=== PATIENT | male | born 1955 | race Two or more races ===

== ENCOUNTER → 2017-10-25 14:36 | Outpatient (CLI) | payer OTHER ==
[~2017-10-25 14:36] MED LIST: AVANDIA4 MG PO; GLIPIZIDE5 MG PO; METFORMIN HYDRO25 GM MC
== END | disposition home or self-care (01) ==
LOC: LAB 14:36 → RAD 14:36
DX: R94.4 Abnormal results of kidney function studies (principal); Z51.81 Encounter for therapeutic drug level monitoring

== ENCOUNTER → 2017-11-02 | Outpatient (CLI) | payer OTHER | END | disposition home or self-care (01) | LOC: TOM 09:00 | DX: R10.2 Pelvic and perineal pain (principal); K59.00 Constipation, unspecified; R19.2 Visible peristalsis | CPT/HCPCS: 74177; Q9965 ==

== ENCOUNTER → 2017-11-02 | Outpatient (CLI) | payer OTHER | END | disposition home or self-care (01) | LOC: RAD 09:11 | DX: I11.9 Hypertensive heart disease without heart failure (principal); I70.90 Unspecified atherosclerosis ==

== ENCOUNTER 2020-10-11 07:59 | Outpatient (CLI) | payer OTHER | END 2020-10-11 09:48 | disposition home or self-care (01) | LOC: RAD 07:59 | PROVIDERS: ATTEND Ophthalmology | DX: I10 Essential (primary) hypertension (principal); I15.8 Other secondary hypertension ==

== ENCOUNTER 2022-04-09 07:30 | Outpatient (CLI) | payer OTHER | END 2022-04-09 07:31 | disposition home or self-care (01) | LOC: NUCLEAR 07:30 | PROVIDERS: ATTEND Internal Medicine Cardiovascular Disease | DX: I20.1 Angina pectoris with documented spasm (principal) | CPT/HCPCS: 78452; 93017; A9500; J0153 ==

== ENCOUNTER 2023-08-17 11:50 | Inpatient (IN) | payer OTHER ==
[~2023-08-17] VITALS: Ht 33 cm; Wt 63.5 kg
[2023-08-17] MEDS ORDERED: ASA81 MG PO (13:13)
[2023-08-17] MEDS ORDERED: PEPCID20 MG PO (13:13)
[2023-08-17] MEDS ORDERED: ELIQUIS5 MG PO (13:14)
[2023-08-17] MEDS ORDERED: PLAVIX75 MG PO (13:14)
[2023-08-17] MEDS ORDERED: LASIX20 MG PO (13:14)
[2023-08-17] MEDS ORDERED: GRALISE600 MG (13:14)
[2023-08-17] MEDS ORDERED: LANTUS SOL100 UNIT/1 (13:15)
[2023-08-17 15:05] LABS: INR 1.08; PARTIAL THROMBOPLASTIN TIME 36.2 SECONDS (22.0-34.0); PROTHROMBIN TIME 11.3 SECONDS (9.0-11.5)
[2023-08-17 15:06] LABS: CALCIUM 8.3 mg/dL (8.5-10.1); CREATININE SERUM 3.13 mg/dL (0.70-1.30); GFR 19.86; POTASSIUM 5.2 mEq/L (3.5-5.1)
[2023-08-17 15:10] LABS: MEAN CELL VOLUME 87.6 fL (80.0-100.00); PLATELET COUNT 397 K/uL (150-450); RED BLOOD COUNT 2.22 M/uL (4.00-6.00); RED CELL DISTRIBUTION WIDTH 13.6 % (11.5-14.5)
[2023-08-17 15:17] LABS: MEAN CORPUSCULAR HEMOGLOBIN 29.7 pg (27.00-32.0)
[2023-08-17 15:21] LABS: PH,URINE 5.5 (5.0-8.0); URINE APPEARANCE Cloudy; URINE BILIRRUBIN Negative (NEGATIVE); URINE BLOOD Large; URINE COLOR Yellow; URINE GLUCOSE Negative (NEGATIVE); URINE LEUKOCYTE Small; URINE NITRATE Negative; URINE UROBILINOGEN 0.2 E.U./dl
[2023-08-17 15:23] LABS: URINE BACTERIA 511.5 uL (0.0-1933); URINE RBC 193.7 uL (0.0-20.8); URINE WBC 142.3 uL (0.0-23.2)
[2023-08-17 15:23] LABS: HEMATOCRIT 19.5 % (39.0-48.0)
[2023-08-17 15:26] LABS: HEMOGLOBIN 6.6 g/dL (13-16.00)
[2023-08-17 15:43] LABS: URINE PROTEIN 100 (NEGATIVE)
[2023-08-19 10:13] LABS: HEMATOCRIT 33.6 % (39.0-48.0); HEMOGLOBIN 11.2 g/dL (13-16.00); MEAN CELL VOLUME 87.8 fL (80.0-100.00); MEAN CORPUSCULAR HEMOGLOBIN 29.3 pg (27.00-32.0); MEAN CORPUSCULAR HGB CONC 33.3 g/dl (32.0-36.0); PLATELET COUNT 433 K/uL (150-450); RED BLOOD COUNT 3.83 M/uL (4.00-6.00); RED CELL DISTRIBUTION WIDTH 14.3 % (11.5-14.5)
[2023-08-19 10:53] LABS: ALBUMIN 2.4 gm/dL (3.4-5.0); BILIRUBIN TOTAL 0.65 mg/dL (0.3-1.2); CALCIUM 8.6 mg/dL (8.5-10.1); CREATININE SERUM 3.64 mg/dL (0.70-1.30); GFR 16.68; GLOBULINA 4.8 G/DL (2.4-3.5); MAGNESIUM 2.5 mg/dL (1.8-2.4); PHOSPHOROUS 5.8 mg/dL (2.5-4.9); POTASSIUM 5.46 mEq/L (3.5-5.1); TOTAL PROTEIN 7.2 gm/dL (6.4-8.2)
[2023-08-19 10:57] LABS: C-REACTIVE PROTEIN 7.35 MG/DL (0.00-0.29)
[2023-08-21 00:10] LABS: URINE APPEARANCE Turbid; URINE BACTERIA 7159.2 uL (0.0-1933); URINE BILIRRUBIN Moderate (NEGATIVE); URINE BLOOD Large; URINE COLOR Red; URINE EPITHELIAL CELLS 4.6 uL (0.0-38.8); URINE GLUCOSE 250 MG/DL (NEGATIVE); URINE LEUKOCYTE Large; URINE NITRATE Positive; URINE PROTEIN >=1000 (NEGATIVE); URINE RBC > 10558.9 uL (0.0-20.8); URINE UROBILINOGEN 0.2 E.U./dl; URINE WBC 505.1 uL (0.0-23.2)
[2023-08-21 05:31] LABS: MEAN CORPUSCULAR HEMOGLOBIN 29.7 pg (27.00-32.0); MEAN CORPUSCULAR HGB CONC 33.4 g/dl (32.0-36.0); PLATELET COUNT 424 K/uL (150-450); RED BLOOD COUNT 3.71 M/uL (4.00-6.00); RED CELL DISTRIBUTION WIDTH 13.7 % (11.5-14.5)
[2023-08-21 05:55] LABS: ALBUMIN 2.3 gm/dL (3.4-5.0); BILIRUBIN TOTAL 0.33 mg/dL (0.3-1.2); CALCIUM 8.7 mg/dL (8.5-10.1); CREATININE SERUM 1.87 mg/dL (0.70-1.30); GFR 35.98; GLOBULINA 4.8 G/DL (2.4-3.5); POTASSIUM 4.48 mEq/L (3.5-5.1); TOTAL PROTEIN 7.1 gm/dL (6.4-8.2)
[2023-08-21 17:57] LABS: CREATININE SERUM 1.6 mg/dL (0.70-1.30); GFR 43.07; POTASSIUM 4.34 mEq/L (3.5-5.1)
[2023-08-23 06:03] LABS: HEMATOCRIT 32.9 % (39.0-48.0); HEMOGLOBIN 11.2 g/dL (13-16.00); MEAN CELL VOLUME 88.6 fL (80.0-100.00); MEAN CORPUSCULAR HEMOGLOBIN 30.1 pg (27.00-32.0); RED BLOOD COUNT 3.71 M/uL (4.00-6.00); RED CELL DISTRIBUTION WIDTH 13.5 % (11.5-14.5)
[2023-08-23 07:08] LABS: ALBUMIN 2.3 gm/dL (3.4-5.0); BILIRUBIN TOTAL 0.31 mg/dL (0.3-1.2); CALCIUM 8.4 mg/dL (8.5-10.1); CREATININE SERUM 1.06 mg/dL (0.70-1.30); GFR 69.27; POTASSIUM 4.51 mEq/L (3.5-5.1); TOTAL PROTEIN 7.3 gm/dL (6.4-8.2)
[2023-08-23 07:55] LABS: PLATELET COUNT 406 K/uL (150-450)
[2023-08-24 15:17] LABS: PH,URINE 5.5 (5.0-8.0); URINE APPEARANCE Cloudy; URINE BILIRRUBIN Negative (NEGATIVE); URINE BLOOD Large; URINE COLOR Orange; URINE LEUKOCYTE Small; URINE NITRATE Negative; URINE UROBILINOGEN 0.2 E.U./dl
[2023-08-24 15:20] LABS: URINE BACTERIA 463.6 uL (0.0-1933); URINE EPITHELIAL CELLS 43.7 uL (0.0-38.8); URINE RBC 10349.8 uL (0.0-20.8); URINE WBC 248.3 uL (0.0-23.2)
[2023-08-24 15:44] LABS: URINE GLUCOSE 250 MG/DL (NEGATIVE); URINE PROTEIN 300 (NEGATIVE)
[2023-08-25 06:43] LABS: HEMATOCRIT 31.7 % (39.0-48.0); HEMOGLOBIN 10.7 g/dL (13-16.00); MEAN CELL VOLUME 88.9 fL (80.0-100.00); MEAN CORPUSCULAR HEMOGLOBIN 30.1 pg (27.00-32.0); MEAN CORPUSCULAR HGB CONC 33.9 g/dl (32.0-36.0); PLATELET COUNT 338 K/uL (150-450); RED BLOOD COUNT 3.57 M/uL (4.00-6.00); RED CELL DISTRIBUTION WIDTH 13.8 % (11.5-14.5)
[2023-08-25 07:01] LABS: CREATININE SERUM 1.05 mg/dL (0.70-1.30); GFR 70.03; POTASSIUM 4.56 mEq/L (3.5-5.1)
== END 2023-08-26 18:58 | disposition home or self-care (01) | DRG 683 ==
LOC: ER 11:51 → MEDI 22:58
PROVIDERS: General Practice; Internal Medicine; Internal Medicine Infectious Disease; Internal Medicine Nephrology; ADMIT Internal Medicine; ATTEND Internal Medicine
PROC: BW21ZZZ Computerized Tomography (CT Scan) of Abdomen and Pelvis (ICD-10-PCS; 2023-08-17)
PROC: 30233N1 Transfusion of Nonautologous Red Blood Cells into Peripheral Vein, Percutaneous Approach (ICD-10-PCS; 2023-08-18)
PROC: 0T25X0Z Change Drainage Device in Kidney, External Approach (ICD-10-PCS; principal; 2023-08-19)
PROC: BW40ZZZ Ultrasonography of Abdomen (ICD-10-PCS; 2023-08-21)
DX: N17.8 Other acute kidney failure (principal); C68.9 Malignant neoplasm of urinary organ, unspecified; K92.1 Melena; N39.0 Urinary tract infection, site not specified; R31.9 Hematuria, unspecified; D63.0 Anemia in neoplastic disease; R60.0 Localized edema; I10 Essential (primary) hypertension; E11.9 Type 2 diabetes mellitus without complications; Z79.4 Long term (current) use of insulin; E78.49 Other hyperlipidemia; K59.00 Constipation, unspecified; N39.498 Other specified urinary incontinence; N13.39 Other hydronephrosis; N48.1 Balanitis; B96.20 Unspecified Escherichia coli [E. coli] as the cause of diseases classified elsewhere

== ENCOUNTER 2023-09-01 16:06 | Emergency (ER) | payer OTHER ==
[~2023-09-01] VITALS: Ht 154.9 cm; Wt 63.5 kg
[~2023-09-01 16:06] MED LIST changes: +ASA81 MG PO; +ELIQUIS5 MG PO; +GRALISE600 MG; +LANTUS SOL100 UNIT/1; +LASIX20 MG PO; +PEPCID20 MG PO; +PLAVIX75 MG PO
[2023-09-01] MEDS ORDERED: ATORVASTATIN CA40 MG PO (16:40)
[2023-09-01] MEDS ORDERED: CARVEDILOL6.25 M1 PO (16:41)
[2023-09-01 21:33] LABS: URINE APPEARANCE Clear; URINE BILIRRUBIN Negative (NEGATIVE); URINE BLOOD Moderate; URINE COLOR Yellow; URINE GLUCOSE Negative (NEGATIVE); URINE LEUKOCYTE Trace; URINE NITRATE Negative; URINE PROTEIN Negative (NEGATIVE); URINE UROBILINOGEN 0.2 E.U./dl
[2023-09-01 21:34] LABS: HEMATOCRIT 30.6 % (39.0-48.0); HEMOGLOBIN 10.3 g/dL (13-16.00); MEAN CELL VOLUME 87.5 fL (80.0-100.00); MEAN CORPUSCULAR HEMOGLOBIN 29.3 pg (27.00-32.0); MEAN CORPUSCULAR HGB CONC 33.5 g/dl (32.0-36.0); PLATELET COUNT 441 K/uL (150-450); RED CELL DISTRIBUTION WIDTH 13.7 % (11.5-14.5)
[2023-09-01 21:37] LABS: URINE WBC 7.5 uL (0.0-23.2)
[2023-09-01 21:44] LABS: URINE RBC 1.4 uL (0.0-20.8)
[2023-09-01 22:04] LABS: ALBUMIN 2.4 gm/dL (3.4-5.0); BILIRUBIN TOTAL 0.23 mg/dL (0.3-1.2); CALCIUM 8.1 mg/dL (8.5-10.1); CREATININE SERUM 1.62 mg/dL (0.70-1.30); GFR 42.46; GLOBULINA 4.5 G/DL (2.4-3.5); POTASSIUM 4.94 mEq/L (3.5-5.1); TOTAL PROTEIN 6.9 gm/dL (6.4-8.2)
== END 2023-09-01 23:59 | disposition home or self-care (01) ==
LOC: ER 16:07
PROVIDERS: Emergency Medicine
DX: N99.528 Other complication of incontinent external stoma of urinary tract (principal); N19 Unspecified kidney failure; Z85.51 Personal history of malignant neoplasm of bladder; Z87.442 Personal history of urinary calculi; I25.2 Old myocardial infarction

== ENCOUNTER 2023-09-19 06:52 | Emergency (ER) | payer OTHER ==
[~2023-09-19] VITALS: Ht 157.5 cm; Wt 59.0 kg
[~2023-09-19 06:52] MED LIST changes: +ATORVASTATIN CA40 MG PO; +CARVEDILOL6.25 M1 PO
[2023-09-19 07:43] LABS: HEMATOCRIT 26.4 % (39.0-48.0); HEMOGLOBIN 9.1 g/dL (13-16.00); MEAN CELL VOLUME 84.5 fL (80.0-100.00); MEAN CORPUSCULAR HGB CONC 34.3 g/dl (32.0-36.0); PLATELET COUNT 357 K/uL (150-450); RED BLOOD COUNT 3.13 M/uL (4.00-6.00); RED CELL DISTRIBUTION WIDTH 14.2 % (11.5-14.5)
[2023-09-19 07:59] LABS: ALBUMIN 2.1 gm/dL (3.4-5.0); BILIRUBIN TOTAL 0.24 mg/dL (0.3-1.2); CALCIUM 8.6 mg/dL (8.5-10.1); CREATININE SERUM 1.59 mg/dL (0.70-1.30); GFR 43.38; GLOBULINA 4.4 G/DL (2.4-3.5); POTASSIUM 4.02 mEq/L (3.5-5.1); TOTAL PROTEIN 6.5 gm/dL (6.4-8.2)
[2023-09-19 10:01] LABS: URINE APPEARANCE Turbid; URINE BILIRRUBIN Negative (NEGATIVE); URINE BLOOD Large; URINE COLOR Yellow; URINE GLUCOSE Negative (NEGATIVE); URINE LEUKOCYTE Large; URINE NITRATE Positive; URINE PROTEIN 30 (NEGATIVE); URINE UROBILINOGEN 0.2 E.U./dl
[2023-09-19 10:02] LABS: URINE BACTERIA 7307.7 uL (0.0-1933); URINE EPITHELIAL CELLS 9.2 uL (0.0-38.8); URINE RBC 72.8 uL (0.0-20.8); URINE WBC 1089.3 uL (0.0-23.2)
[2023-09-19] MEDS ORDERED: CEFTRIAXONE SODIUM 2,000 MG VIAL IV ONE (10:15)
[2023-09-19] MEDS ORDERED: 0.9 % SODIUM CHLORIDE 1,000 ML IV STA (12:23)
== END 2023-09-19 14:01 | disposition home or self-care (01) ==
LOC: ER 06:52
PROVIDERS: General Practice
DX: N39.0 Urinary tract infection, site not specified (principal); E11.649 Type 2 diabetes mellitus with hypoglycemia without coma; Z79.4 Long term (current) use of insulin; I10 Essential (primary) hypertension; K80.20 Calculus of gallbladder without cholecystitis without obstruction; J90 Pleural effusion, not elsewhere classified; R60.1 Generalized edema
CPT/HCPCS: 36415; 74176; 96365; 96366; 99284; J0696

== ENCOUNTER 2023-09-27 11:01 | Inpatient (IN) | payer OTHER ==
[~2023-09-27] VITALS: Ht 167.6 cm; Wt 54.4 kg
[2023-09-27] MEDS ORDERED: 0.9 % SODIUM CHLORIDE 1,000 ML IV SCH (12:00)
[2023-09-27] MEDS ORDERED: CEFTRIAXONE SODIUM 2,000 MG VIAL IV ONE (12:00)
[2023-09-27] MEDS ORDERED: ACETAMINOPHEN 500 MG GEL..CAP PO ONE (12:00)
[2023-09-27 13:03] LABS: HEMOGLOBIN 9.7 g/dL (13-16.00); MEAN CELL VOLUME 85.2 fL (80.0-100.00); MEAN CORPUSCULAR HEMOGLOBIN 28.6 pg (27.00-32.0); MEAN CORPUSCULAR HGB CONC 33.6 g/dl (32.0-36.0); PLATELET COUNT 484 K/uL (150-450); RED CELL DISTRIBUTION WIDTH 14.3 % (11.5-14.5)
[2023-09-27 13:30] LABS: ALBUMIN 1.8 gm/dL (3.4-5.0); BILIRUBIN TOTAL 0.37 mg/dL (0.3-1.2); CALCIUM 8.1 mg/dL (8.5-10.1); CREATININE SERUM 2.03 mg/dL (0.70-1.30); GFR 32.73; GLOBULINA 5.7 G/DL (2.4-3.5); POTASSIUM 5.53 mEq/L (3.5-5.1); TOTAL PROTEIN 7.5 gm/dL (6.4-8.2)
[2023-09-27 13:34] LABS: URINE APPEARANCE Turbid; URINE BILIRRUBIN Small (NEGATIVE); URINE BLOOD Large; URINE COLOR Dark Yellow; URINE GLUCOSE Negative (NEGATIVE); URINE LEUKOCYTE Large; URINE NITRATE Negative
[2023-09-27 13:38] LABS: URINE BACTERIA 6124.8 uL (0.0-1933); URINE EPITHELIAL CELLS 49.6 uL (0.0-38.8); URINE RBC 83.5 uL (0.0-20.8)
[2023-09-27 13:50] LABS: URINE PROTEIN 100 (NEGATIVE); URINE YEAST FEW /hpf
[2023-09-27 13:51] LABS: URINE WBC > 5548.3 uL (0.0-23.2)
[2023-09-27] MEDS ORDERED: ONDANSETRON HCL 4 MG in 0.9 % SODIUM CHLORIDE 50 ML IV PRN (18:45)
[2023-09-27] MEDS ORDERED: ACETAMINOPHEN 500 MG GEL..CAP PO PRN (18:45)
[2023-09-27] MEDS ORDERED: DEXTROSE 50 % IN WATER 0.5 G/ML DISP.SYRIN IV PRN (18:45)
[2023-09-27] MEDS ORDERED: INSULIN LISPRO 1,000 UNIT/10 ML UNITS SUBCUTANEO PRN (18:45)
[2023-09-27 20:32] LABS: INR 1.13; PARTIAL THROMBOPLASTIN TIME 42.1 SECONDS (22.0-34.0); PROTHROMBIN TIME 11.8 SECONDS (9.0-11.5)
[2023-09-27 20:49] LABS: ABG PH 7.483 (7.35-7.45); ABG PO2 82.3 mmHg (80-100); ABG pCO2 33.6 mmHg (35-45)
[2023-09-27 20:50] LABS: BASE EXCESS 1.8 mmol/l; BICARBONATE 24.6 mmol/l (23-25); Tco2 25.7 mmol/l; allen test SATISFACTORY; o2 21 %; puncture site RADIAL RIGHT
[2023-09-27] MEDS ORDERED: MEROPENEM 500 MG/VIAL VIAL IV SCH (21:00)
[2023-09-27] MEDS ORDERED: CARVEDILOL 6.25 MG TABLET PO SCH (21:00)
[2023-09-28] MEDS ORDERED: FAMOTIDINE/PF 20 MG in 0.9 % SODIUM CHLORIDE 8 ML IV PUSH SCH (09:00)
[2023-09-28] MEDS ORDERED: FUROsemide 20 MG/2 ML VIAL IV SCH (09:00)
[2023-09-28] MEDS ORDERED: MEROPENEM 500 MG/VIAL VIAL IV SCH (17:00)
[2023-09-28 21:40] LABS: TP PLEURAL FLUID 4.1 g/dl
[2023-09-28 22:16] LABS: PLEURAL FLUID APPEARANCE HAZY; PLEURAL FLUID COLOR YELLOW
[2023-09-28 22:17] LABS: MONONUCLEAR 84 %; POLYMORPHONUCLEAR 16 %
[2023-09-29 06:08] LABS: MEAN CELL VOLUME 86.5 fL (80.0-100.00); MEAN CORPUSCULAR HEMOGLOBIN 29.9 pg (27.00-32.0); MEAN CORPUSCULAR HGB CONC 34.5 g/dl (32.0-36.0); PLATELET COUNT 429 K/uL (150-450); RED BLOOD COUNT 2.77 M/uL (4.00-6.00)
[2023-09-29 06:19] LABS: HEMOGLOBIN 8.3 g/dL (13-16.00)
[2023-09-29 06:45] LABS: ALBUMIN 1.6 gm/dL (3.4-5.0); BILIRUBIN TOTAL 0.24 mg/dL (0.3-1.2); CALCIUM 7.5 mg/dL (8.5-10.1); CREATININE SERUM 1.77 mg/dL (0.70-1.30); GFR 38.33; GLOBULINA 4.4 G/DL (2.4-3.5); MAGNESIUM 2.2 mg/dL (1.8-2.4); PHOSPHOROUS 5.3 mg/dL (2.5-4.9); POTASSIUM 5.05 mEq/L (3.5-5.1)
[2023-09-29 06:48] LABS: C-REACTIVE PROTEIN 8.65 MG/DL (0.00-0.29)
[2023-09-30] MEDS ORDERED: BUPIVACAINE HCL/PF 0.5% 30ML ML ONE (20:00)
[2023-09-30] MEDS ORDERED: IOVERSOL 320 MG/ML - 50 ML VIAL IV ONE (20:00)
[2023-09-30] MEDS ORDERED: BUPIVACAINE HCL/PF 2.5 MG/ML 30ML VIAL InF ONE (22:15)
[2023-09-30] MEDS ORDERED: IOVERSOL 320 MG/ML - 100 ML VIAL IV ONE (22:15)
[2023-10-01 10:18] LABS: PH,URINE 5.5 (5.0-8.0); URINE APPEARANCE Cloudy; URINE BILIRRUBIN Negative (NEGATIVE); URINE BLOOD Large; URINE COLOR Orange; URINE GLUCOSE Negative (NEGATIVE); URINE LEUKOCYTE Large; URINE NITRATE Negative; URINE PROTEIN 30 (NEGATIVE)
[2023-10-01 10:21] LABS: URINE BACTERIA 554.3 uL (0.0-1933); URINE EPITHELIAL CELLS 1.5 uL (0.0-38.8); URINE RBC 1815.2 uL (0.0-20.8); URINE WBC 1417.5 uL (0.0-23.2)
[2023-10-01 18:47] LABS: HEMATOCRIT 32.2 % (39.0-48.0); HEMOGLOBIN 10.7 g/dL (13-16.00); MEAN CELL VOLUME 86.1 fL (80.0-100.00); MEAN CORPUSCULAR HEMOGLOBIN 28.7 pg (27.00-32.0); MEAN CORPUSCULAR HGB CONC 33.3 g/dl (32.0-36.0); PLATELET COUNT 432 K/uL (150-450); RED BLOOD COUNT 3.74 M/uL (4.00-6.00); RED CELL DISTRIBUTION WIDTH 14.3 % (11.5-14.5)
[2023-10-02 09:12] LABS: ALBUMIN 1.8 gm/dL (3.4-5.0); BILIRUBIN TOTAL 0.4 mg/dL (0.3-1.2); CALCIUM 8.3 mg/dL (8.5-10.1); CREATININE SERUM 1.34 mg/dL (0.70-1.30); GFR 52.85; GLOBULINA 4.4 G/DL (2.4-3.5); POTASSIUM 4.7 mEq/L (3.5-5.1); TOTAL PROTEIN 6.2 gm/dL (6.4-8.2)
[2023-10-03] MEDS ORDERED: FLUCONAZOLE IN NACL,ISO-OSM 2 MG/ML ML IV SCH (12:00)
== END 2023-10-04 12:44 | disposition home or self-care (01) | DRG 187 ==
LOC: ER 11:01 → MEDI 19:10 → MEDJ 19:10
PROVIDERS: General Practice; Internal Medicine; Internal Medicine Infectious Disease; Internal Medicine Nephrology; Radiology Vascular & Interventional Radiology; ADMIT Internal Medicine; ATTEND Internal Medicine
PROC: BW21ZZZ Computerized Tomography (CT Scan) of Abdomen and Pelvis (ICD-10-PCS; principal; 2023-09-27)
PROC: BB24ZZZ Computerized Tomography (CT Scan) of Bilateral Lungs (ICD-10-PCS; 2023-09-27)
PROC: 4A12X4Z Monitoring of Cardiac Electrical Activity, External Approach (ICD-10-PCS; 2023-09-27)
PROC: 0W993ZZ Drainage of Right Pleural Cavity, Percutaneous Approach (ICD-10-PCS; 2023-09-28)
PROC: 0T25X0Z Change Drainage Device in Kidney, External Approach (ICD-10-PCS; 2023-09-30)
PROC: 30233N1 Transfusion of Nonautologous Red Blood Cells into Peripheral Vein, Percutaneous Approach (ICD-10-PCS; 2023-10-01)
DX: J90 Pleural effusion, not elsewhere classified (principal); C68.9 Malignant neoplasm of urinary organ, unspecified; N39.0 Urinary tract infection, site not specified; N17.8 Other acute kidney failure; B96.20 Unspecified Escherichia coli [E. coli] as the cause of diseases classified elsewhere; D63.0 Anemia in neoplastic disease; I10 Essential (primary) hypertension; Z79.4 Long term (current) use of insulin; E78.49 Other hyperlipidemia; N99.528 Other complication of incontinent external stoma of urinary tract; E11.649 Type 2 diabetes mellitus with hypoglycemia without coma

== ENCOUNTER 2023-10-17 14:47 | Inpatient (IN) | payer OTHER ==
[~2023-10-17] VITALS: Ht 152.4 cm; Wt 60.3 kg
[2023-10-17] MEDS ORDERED: ONDANSETRON HCL 2 MG/ML VIAL IV STA (16:48)
[2023-10-17] MEDS ORDERED: MEPERIDINE HCL/PF 50 MG/ML VIAL IM ONE (17:00)
[2023-10-17 17:18] LABS: HEMATOCRIT 32.9 % (39.0-48.0); MEAN CELL VOLUME 84.9 fL (80.0-100.00); MEAN CORPUSCULAR HEMOGLOBIN 28.4 pg (27.00-32.0); MEAN CORPUSCULAR HGB CONC 33.4 g/dl (32.0-36.0); PLATELET COUNT 457 K/uL (150-450); RED BLOOD COUNT 3.88 M/uL (4.00-6.00); RED CELL DISTRIBUTION WIDTH 15.2 % (11.5-14.5)
[2023-10-17 17:36] LABS: INR 1.06; PARTIAL THROMBOPLASTIN TIME 35.4 SECONDS (22.0-34.0); PROTHROMBIN TIME 11.1 SECONDS (9.0-11.5)
[2023-10-17 17:41] LABS: ALBUMIN 1.8 gm/dL (3.4-5.0); ALKALINE PHOSPHATASE 116 U/L (50-136); ALT/SGPT 19 U/L (12-78); AMYLASE 77 U/L (25-115); ANION GAP 12 (10.0-20.0); AST/SGOT 34 U/L (15-37); BILIRUBIN TOTAL 0.25 mg/dL (0.3-1.2); BILIRUBIN,CONJUGATED < 0.10 mg/dL (0.0-0.2); BILIRUBIN,UNCONJUGATED 0.15 mg/dL (0.0-0.6); BLOOD UREA NITROGEN 75 mg/dL (7-18); BUN CREA RATIO 32 (7.0-25.0); CALCIUM 8.1 mg/dL (8.5-10.1); CARBON DIOXIDE 25 mEq/L (21-32); CHLORIDE 96 mmol/L (98-107); CREATININE SERUM 2.34 mg/dL (0.70-1.30); GFR 27.78; GLUCOSE FASTING 173 mg/dL (65-100); LIPASE 54 U/L (13-75); OSMOLALITY SERUM 283 MOSM/KG (275-295); POTASSIUM 5.48 mEq/L (3.5-5.1); SODIUM 128 mmol/L (136-145); TOTAL PROTEIN 6.6 gm/dL (6.4-8.2)
[2023-10-17 18:08] LABS: URINE APPEARANCE Turbid; URINE BILIRRUBIN Negative (NEGATIVE); URINE BLOOD Moderate; URINE COLOR Yellow; URINE GLUCOSE Negative (NEGATIVE); URINE LEUKOCYTE Large; URINE NITRATE Negative
[2023-10-17 18:12] LABS: URINE EPITHELIAL CELLS 24.5 uL (0.0-38.8); URINE RBC 144.4 uL (0.0-20.8)
[2023-10-17 18:27] LABS: URINE MUCUS SCANT; URINE PROTEIN 100 (NEGATIVE)
[2023-10-17 18:28] LABS: URINE YEAST FEW /hpf
[2023-10-17] MEDS ORDERED: PIPERACILLIN/TAZOBACTAM SODIUM 3.375 GM in DEXTROSE 5 % IN WATER 100 ML IV SCH (20:43)
[2023-10-18] MEDS ORDERED: FUROsemide 40 MG/4 ML VIAL IV STA (05:25)
[2023-10-18] MEDS ORDERED: FUROsemide 20 MG/2 ML VIAL IV SCH (13:25)
[2023-10-18] MEDS ORDERED: ENOXAPARIN SODIUM 30 MG/0.3 ML SYRINGE SUBCUTANEO SCH (13:25)
[2023-10-18] MEDS ORDERED: ISOSORBIDE MONONITRATE 30 MG TABLET PO SCH (13:25)
[2023-10-18] MEDS ORDERED: PIPERACILLIN/TAZOBACTAM SODIUM 2.25 GM in DEXTROSE 5 % IN WATER 50 ML IV SCH (13:28)
[2023-10-18] MEDS ORDERED: CARVEDILOL 6.25 MG TABLET PO SCH (13:33)
[2023-10-18] MEDS ORDERED: ASPIRIN 81 MG TAB.CHEW PO SCH (13:34)
[2023-10-18 14:41] LABS: URINE APPEARANCE Cloudy; URINE BILIRRUBIN Negative (NEGATIVE); URINE BLOOD Moderate; URINE COLOR Yellow; URINE GLUCOSE Negative (NEGATIVE); URINE LEUKOCYTE Moderate; URINE NITRATE Positive; URINE UROBILINOGEN 0.2 E.U./dl
[2023-10-18 14:45] LABS: URINE EPITHELIAL CELLS 76.8 uL (0.0-38.8); URINE RBC 96.5 uL (0.0-20.8); URINE WBC 305.3 uL (0.0-23.2)
[2023-10-18 15:12] LABS: URINE MUCUS SCANT; URINE PROTEIN 100 (NEGATIVE)
[2023-10-18 15:13] LABS: CREATININE SERUM 2.38 mg/dL (0.70-1.30)
[2023-10-18 15:17] LABS: CKMB 1.2 NG/ML (0.5-3.6); POTASSIUM 5.32 mEq/L (3.5-5.1)
[2023-10-18] MEDS ORDERED: FAMOTIDINE20 MG (16:32)
[2023-10-18] MEDS ORDERED: TAMSULOSIN HCL0.4 MG (16:32)
[2023-10-18] MEDS ORDERED: GLIPIZIDE10 MG (16:32)
[2023-10-18] MEDS ORDERED: HYDROCHLOROTHIA25 MG (16:32)
[2023-10-18] MEDS ORDERED: METFORMIN HCL1000 M3 (16:32)
[2023-10-18] MEDS ORDERED: VITAMIN D325 MCG (16:32)
[2023-10-18] MEDS ORDERED: CETIRIZINE HCL10 MG (16:32)
[2023-10-19] MEDS ORDERED: NA PHOS,M-B/NA PHOS,DI-BA 1 BOTTLE ENEMA RECTAL ONE (06:00)
[2023-10-19] MEDS ORDERED: ATORVASTATIN CALCIUM 40 MG TABLET PO SCH (09:00)
[2023-10-19] MEDS ORDERED: ENOXAPARIN SODIUM 30 MG/0.3 ML SYRINGE SUBCUTANEO SCH (09:00)
[2023-10-19] MEDS ORDERED: INSULIN GLARGINE,HUM.REC.ANLOG 1,000 UNITS/10 ML UNITS SUBCUTANEO SCH (09:00)
[2023-10-19] MEDS ORDERED: GABAPENTIN 400 MG CAPSULE PO SCH (09:00)
[2023-10-19] MEDS ORDERED: ENOXAPARIN SODIUM 60 MG/0.6 ML SYRINGE SUBCUTANEO SCH (09:00)
[2023-10-19] MEDS ORDERED: CLOPIDOGREL BISULFATE 75 MG TABLET PO SCH (09:00)
[2023-10-19] MEDS ORDERED: LACTULOSE 20 G/30 ML BLIST.PACK PO SCH (10:56)
[2023-10-19] MEDS ORDERED: DOCUSATE CALCIUM 240 MG CAPSULE PO SCH (10:56)
[2023-10-19 14:30] LABS: HEMATOCRIT 32.1 % (39.0-48.0); HEMOGLOBIN 10.9 g/dL (13-16.00); MEAN CELL VOLUME 86.4 fL (80.0-100.00); MEAN CORPUSCULAR HEMOGLOBIN 29.3 pg (27.00-32.0); MEAN CORPUSCULAR HGB CONC 33.9 g/dl (32.0-36.0); PLATELET COUNT 465 K/uL (150-450); RED BLOOD COUNT 3.72 M/uL (4.00-6.00); RED CELL DISTRIBUTION WIDTH 15.2 % (11.5-14.5)
[2023-10-19 14:46] LABS: ALBUMIN 1.9 gm/dL (3.4-5.0); BILIRUBIN TOTAL 0.4 mg/dL (0.3-1.2); CALCIUM 8.7 mg/dL (8.5-10.1); CREATININE SERUM 2.74 mg/dL (0.70-1.30); GFR 23.15; GLOBULINA 5.7 G/DL (2.4-3.5); POTASSIUM 5.11 mEq/L (3.5-5.1); TOTAL PROTEIN 7.6 gm/dL (6.4-8.2)
[2023-10-19] MEDS ORDERED: MEROPENEM 500 MG/VIAL VIAL IV SCH (17:00)
[2023-10-19] MEDS ORDERED: ALBUMIN HUMAN 0.25GM/ML (50ML) VIAL IV SCH (21:00)
[2023-10-20 06:54] LABS: CREATININE SERUM 2.57 mg/dL (0.70-1.30); POTASSIUM 5.51 mEq/L (3.5-5.1)
[2023-10-20] MEDS ORDERED: OxyCODONE HCL/APAP UD (PERCOCET) PO PRN (07:15)
[2023-10-20] MEDS ORDERED: ALBUMIN HUMAN 100 ML VIAL IV SCH (09:00)
[2023-10-21] MEDS ORDERED: FUROsemide 20 MG/2 ML VIAL IV SCH (09:00)
[2023-10-21] MEDS ORDERED: FLUCONAZOLE IN NACL,ISO-OSM 2 MG/ML ML IV ONE (17:00)
[2023-10-21] MEDS ORDERED: GLUCAGON 1 MG VIAL IV STA (23:27)
[2023-10-22] MEDS ORDERED: GLUCAGON 1 MG VIAL IV ONE (05:30)
[2023-10-22] MEDS ORDERED: NALOXONE HCL 0.4 MG/ML AMPUL ONE (05:33)
[2023-10-22] MEDS ORDERED: ACETAMINOPHEN 500 MG GEL..CAP PO PRN (06:45)
[2023-10-22] MEDS ORDERED: DEXTROSE 10%-WATER 250 ML IV.SOLN IV SCH (06:45)
[2023-10-22] MEDS ORDERED: GLUCAGON 1 MG VIAL ONE (07:04)
[2023-10-22] MEDS ORDERED: GLUCAGON 1 MG VIAL IV STA (07:05)
[2023-10-22] MEDS ORDERED: GLUCAGON 1 MG VIAL IV PRN (07:15)
[2023-10-22] MEDS ORDERED: DEXTROSE 10 % IN WATER 500 ML IV SCH (08:30)
[2023-10-22] MEDS ORDERED: IPRATROPIUM BROMIDE 0.5 MG/2.5 ML AMPUL.NEB IH SCH (09:19)
[2023-10-22 12:45] LABS: HEMOGLOBIN 9.7 g/dL (13-16.00); MEAN CELL VOLUME 85.8 fL (80.0-100.00); MEAN CORPUSCULAR HEMOGLOBIN 28.6 pg (27.00-32.0); MEAN CORPUSCULAR HGB CONC 33.3 g/dl (32.0-36.0); PLATELET COUNT 335 K/uL (150-450); RED BLOOD COUNT 3.38 M/uL (4.00-6.00); RED CELL DISTRIBUTION WIDTH 15.1 % (11.5-14.5)
[2023-10-22 12:57] LABS: ALBUMIN 2.6 gm/dL (3.4-5.0); BILIRUBIN TOTAL 0.45 mg/dL (0.3-1.2); CREATININE SERUM 1.91 mg/dL (0.70-1.30); GFR 35.11; GLOBULINA 3.7 G/DL (2.4-3.5); POTASSIUM 4.84 mEq/L (3.5-5.1); TOTAL PROTEIN 6.3 gm/dL (6.4-8.2)
[2023-10-22] MEDS ORDERED: FLUCONAZOLE IN NACL,ISO-OSM 2 MG/ML ML IV SCH (17:00)
[2023-10-24] MEDS ORDERED: PHENOL 177 ML BOTTLE MM SCH (09:00)
[2023-10-24] MEDS ORDERED: INSULIN LISPRO 1,000 UNIT/10 ML UNITS SUBCUTANEO PRN (10:00)
[2023-10-24] MEDS ORDERED: DEXTROSE 50 % IN WATER 0.5 G/ML DISP.SYRIN IV PRN (10:00)
[2023-10-25 05:28] LABS: HEMATOCRIT 25.3 % (39.0-48.0); MEAN CELL VOLUME 86.3 fL (80.0-100.00); MEAN CORPUSCULAR HEMOGLOBIN 29.3 pg (27.00-32.0); MEAN CORPUSCULAR HGB CONC 34.2 g/dl (32.0-36.0); PLATELET COUNT 339 K/uL (150-450); RED BLOOD COUNT 2.93 M/uL (4.00-6.00); RED CELL DISTRIBUTION WIDTH 15.6 % (11.5-14.5)
[2023-10-25 05:29] LABS: HEMOGLOBIN 8.6 g/dL (13-16.00)
[2023-10-25 05:57] LABS: BILIRUBIN TOTAL 0.38 mg/dL (0.3-1.2); CALCIUM 8.5 mg/dL (8.5-10.1); CREATININE SERUM 2.66 mg/dL (0.70-1.30); GFR 23.96; GLOBULINA 4.1 G/DL (2.4-3.5); POTASSIUM 5.53 mEq/L (3.5-5.1); TOTAL PROTEIN 6.1 gm/dL (6.4-8.2)
[2023-10-25] MEDS ORDERED: INSULIN NPH HUMAN ISOPHANE 1,000 UNITS/10 ML UNITS SUBCUTANEO STA (09:57)
[2023-10-25] MEDS ORDERED: levoFLOXacin IN DEXTROSE 5 % 500MG/100ML PIGGYBAG IV SCH (17:15)
[2023-10-25] MEDS ORDERED: INSULIN NPH HUMAN ISOPHANE 1,000 UNITS/10 ML UNITS SUBCUTANEO SCH (21:00)
[2023-10-25] MEDS ORDERED: AMPICILLIN SODIUM/SULBACTAM NA 3,000 MG VIAL IV SCH (21:00)
[2023-10-26] MEDS ORDERED: INSULIN NPH HUMAN ISOPHANE 1,000 UNITS/10 ML UNITS SUBCUTANEO SCH ×2 (09:00→21:00)
[2023-10-26 15:04] LABS: INR 1.06; PROTHROMBIN TIME 11.1 SECONDS (9.0-11.5)
[2023-10-26 15:06] LABS: PARTIAL THROMBOPLASTIN TIME 43.9 SECONDS (22.0-34.0)
[2023-10-26] MEDS ORDERED: IOVERSOL 320 MG/ML - 50 ML VIAL IV ONE (19:54)
[2023-10-26] MEDS ORDERED: BUPIVACAINE HCL/PF 0.5% 30ML ML ONE (19:54)
[2023-10-27 05:28] LABS: HEMATOCRIT 23.8 % (39.0-48.0); HEMOGLOBIN 8.3 g/dL (13-16.00); MEAN CELL VOLUME 85.6 fL (80.0-100.00); MEAN CORPUSCULAR HEMOGLOBIN 29.8 pg (27.00-32.0); MEAN CORPUSCULAR HGB CONC 34.8 g/dl (32.0-36.0); PLATELET COUNT 323 K/uL (150-450); RED BLOOD COUNT 2.78 M/uL (4.00-6.00); RED CELL DISTRIBUTION WIDTH 15.5 % (11.5-14.5)
[2023-10-27 05:40] LABS: ALBUMIN 1.7 gm/dL (3.4-5.0); BILIRUBIN TOTAL 0.38 mg/dL (0.3-1.2); CALCIUM 8.1 mg/dL (8.5-10.1); CREATININE SERUM 3.12 mg/dL (0.70-1.30); GFR 19.93; MAGNESIUM 2.3 mg/dL (1.8-2.4); PHOSPHOROUS 5.8 mg/dL (2.5-4.9); POTASSIUM 5.89 mEq/L (3.5-5.1); TOTAL PROTEIN 5.7 gm/dL (6.4-8.2)
[2023-10-27 05:49] LABS: C-REACTIVE PROTEIN 16.6 MG/DL (0.00-0.29)
== END 2023-10-27 19:47 | disposition home or self-care (01) | DRG 291 ==
LOC: ER 14:47 → MEDI 10-18 14:35 → SEC-K 10-18 14:35 → MEDI 10-18 16:28
PROVIDERS: General Practice; Internal Medicine Infectious Disease; Internal Medicine Nephrology; Radiology Vascular & Interventional Radiology; ADMIT Internal Medicine; ATTEND Internal Medicine
PROC: 4A12X4Z Monitoring of Cardiac Electrical Activity, External Approach (ICD-10-PCS; 2023-10-18)
PROC: B24BZZZ Ultrasonography of Heart with Aorta (ICD-10-PCS; 2023-10-19)
PROC: 0T25X0Z Change Drainage Device in Kidney, External Approach (ICD-10-PCS; principal; 2023-10-26 21:15)
DX: I13.0 Hypertensive heart and chronic kidney disease with heart failure and stage 1 through stage 4 chronic kidney disease, or unspecified chronic kidney disease (principal); I50.23 Acute on chronic systolic (congestive) heart failure; C79.89 Secondary malignant neoplasm of other specified sites; E46 Unspecified protein-calorie malnutrition; N17.9 Acute kidney failure, unspecified; N39.0 Urinary tract infection, site not specified; N13.8 Other obstructive and reflux uropathy; E78.5 Hyperlipidemia, unspecified; C67.9 Malignant neoplasm of bladder, unspecified; E11.22 Type 2 diabetes mellitus with diabetic chronic kidney disease; N18.9 Chronic kidney disease, unspecified; Z79.4 Long term (current) use of insulin; B95.2 Enterococcus as the cause of diseases classified elsewhere; B96.89 Other specified bacterial agents as the cause of diseases classified elsewhere; E11.65 Type 2 diabetes mellitus with hyperglycemia; D63.1 Anemia in chronic kidney disease; I25.10 Atherosclerotic heart disease of native coronary artery without angina pectoris; N99.522 Malfunction of incontinent external stoma of urinary tract